=== PATIENT | male | born 1965 | race American Indian/Alaskan Native ===

== ENCOUNTER 2017-12-02 16:15 | Emergency (ER) | payer MEDICAID ==
[~2017-12-02] VITALS: Ht 152.4 cm; Wt 75.0 kg
[~2017-12-02 16:15] MED LIST: ALBU8HFA PO; DIVA-81 PO; TOPI50TA24 PO
[2017-12-02 16:59] VITALS: BP 139/68
== END 2017-12-02 19:14 | disposition home or self-care (01) ==
LOC: ER 16:16
DX: Z13.89 Encounter for screening for other disorder (principal); F12.10 Cannabis abuse, uncomplicated; F15.10 Other stimulant abuse, uncomplicated; Z88.2 Allergy status to sulfonamides
CPT/HCPCS: 71046; 99284

== ENCOUNTER 2018-06-05 12:16 | Emergency (ER) | payer MEDICAID ==
[~2018-06-05] VITALS: Ht 165.1 cm; Wt 60.0 kg
[2018-06-05 13:02] LABS: BASOPHILS % (AUTO) 0.4 % (0-1); EOSINOPHILS # (AUTO) 0.2 X10'3 (0-0.9); HEMATOCRIT 43.1 % (42.0-52.0); HEMOGLOBIN 14.4 g/dl (14.0-17.9); LYMPHOCYTES # (AUTO) 1.2 X10'3 (1.1-4.8); LYMPHOCYTES % (AUTO) 11.2 % (21-51); MEAN CORPUSCULAR HEMOGLOBIN 28.5 PG (27.0-31.0); MEAN CORPUSCULAR HGB CONC 33.5 % (33.0-36.5); MEAN CORPUSCULAR VOLUME 85.1 FL (78-98); MEAN PLATELET VOLUME 10.1 FL (7.4-10.4); MONOCYTES # (AUTO) 0.6 X10'3 (0-0.9); MONOCYTES % (AUTO) 5.5 % (2-12); NEUTROPHILS # (AUTO) 8.8 X10'3 (1.8-7.7); NEUTROPHILS % (AUTO) 80.9 % (42-75); PLATELET COUNT 205 X10'3 (140-440); RED BLOOD COUNT 5.06 X10'6 (4.70-6.10); RED CELL DISTRIBUTION WIDTH 14.3 % (11.5-14.5); WHITE BLOOD COUNT 10.9 X10'3 (4.5-11.0)
[2018-06-05 13:14] LABS: ALANINE AMINOTRANSFERASE 23 U/L (12-78); ALBUMIN 3.5 G/DL (3.4-5.0); ALKALINE PHOSPHATASE 89 IU/L (46-116); ANION GAP 9 (8-16); ASPARTATE AMINO TRANSFERASE 16 U/L (10-37); BILIRUBIN,TOTAL 0.3 MG/DL (0.1-1.0); BLOOD UREA NITROGEN 5 MG/DL (7-18); BUN/CREATININE RATIO 5.2 (5.4-32.0); CALCIUM 8.3 MG/DL (8.5-10.1); CHLORIDE 104 MMOL/L (99-107); CREATININE 0.96 MG/DL (0.60-1.10); GLUCOSE 105 MG/DL (70-104); LIPASE 694 U/L (73-393); SODIUM 141 MMOL/L (135-145); TOTAL CARBON DIOXIDE 27.6 MMOL/L (24-32); TOTAL PROTEIN 7.1 G/DL (6.4-8.2); eGFR 82 ML/MIN
[2018-06-05] MEDS ORDERED: potassium Cl 20 mEq SR tablet PO ONE (13:25)
[2018-06-05 13:38] LABS: CLARITY,URINE CLEAR (Clear); COLOR,URINE YELLOW (Yellow); GLUCOSE, URINE NEGATIVE (Neg); KETONES,URINE NEGATIVE (Neg); LEUKOCYTE ESTERASE ,URINE NEGATIVE (Neg); NITRITES, URINE NEGATIVE (Neg); OCCULT BLOOD,URINE NEGATIVE (Neg); PROTEIN,URINE NEGATIVE (Neg); UROBILINOGEN,URINE 0.2 E.U/dL (0.2-1.0)
[2018-06-05 13:45] LABS: UA COLLECTION TYPE NON-SPECIFIED
[2018-06-05 13:48] LABS: URINE AMPHETAMINE SCREEN POSITIVE (Neg); URINE BARBITUATE SCREEN NEGATIVE (Neg); URINE BENZODIAZEPINES SCREEN NEGATIVE (Neg); URINE CANNABINOID SCREEN POSITIVE (Neg); URINE COCAINE SCREEN NEGATIVE (Neg); URINE METHADONE SCREEN NEGATIVE (Neg); URINE OPIATE SCREEN NEGATIVE (Neg); URINE PHENCYCLIDINE SCREEN NEGATIVE (Neg)
[2018-06-05 14:14] VITALS: BP 131/95
== END 2018-06-05 14:15 | disposition home or self-care (01) ==
LOC: ER 12:17
DX: R39.11 Hesitancy of micturition (principal); F12.90 Cannabis use, unspecified, uncomplicated; F15.90 Other stimulant use, unspecified, uncomplicated; Z88.2 Allergy status to sulfonamides; Z79.899 Other long term (current) drug therapy
CPT/HCPCS: 36415; 80053; 80305; 81003; 83690; 85025; 99284

== ENCOUNTER 2018-06-30 12:31 | Emergency (ER) | payer MEDICAID ==
[~2018-06-30] VITALS: Ht 165.1 cm; Wt 77.3 kg
[2018-06-30 13:16] VITALS: BP 126/70
[2018-06-30 13:48] LABS: BASOPHILS # (AUTO) 0.1 X10'3 (0-0.2); BASOPHILS % (AUTO) 0.3 % (0-1); EOSINOPHILS # (AUTO) 0.2 X10'3 (0-0.9); HEMATOCRIT 44.6 % (42.0-52.0); HEMOGLOBIN 14.7 g/dl (14.0-17.9); LYMPHOCYTES % (AUTO) 4.6 % (21-51); MEAN CORPUSCULAR HEMOGLOBIN 28.4 PG (27.0-31.0); MEAN CORPUSCULAR HGB CONC 32.9 % (33.0-36.5); MEAN CORPUSCULAR VOLUME 86.3 FL (78-98); MEAN PLATELET VOLUME 9.9 FL (7.4-10.4); MONOCYTES # (AUTO) 1.4 X10'3 (0-0.9); MONOCYTES % (AUTO) 6.7 % (2-12); NEUTROPHILS # (AUTO) 18.5 X10'3 (1.8-7.7); NEUTROPHILS % (AUTO) 87.4 % (42-75); PLATELET COUNT 203 X10'3 (140-440); RED BLOOD COUNT 5.17 X10'6 (4.70-6.10); RED CELL DISTRIBUTION WIDTH 14.4 % (11.5-14.5); WHITE BLOOD COUNT 21.1 X10'3 (4.5-11.0)
[2018-06-30 14:06] LABS: ALANINE AMINOTRANSFERASE 35 U/L (12-78); ALBUMIN 3.2 G/DL (3.4-5.0); ALBUMIN/GLOBULIN RATIO 0.9 (1.1-1.5); ALKALINE PHOSPHATASE 100 IU/L (46-116); ANION GAP 9 (8-16); ASPARTATE AMINO TRANSFERASE 20 U/L (10-37); BILIRUBIN,TOTAL 0.2 MG/DL (0.1-1.0); BLOOD UREA NITROGEN 5 MG/DL (7-18); BUN/CREATININE RATIO 5.7 (5.4-32.0); CALCIUM 8.6 MG/DL (8.5-10.1); CHLORIDE 104 MMOL/L (99-107); CREATININE 0.87 MG/DL (0.60-1.10); GLUCOSE 81 MG/DL (70-104); LIPASE 379 U/L (73-393); POTASSIUM 3.4 MMOL/L (3.5-5.1); SODIUM 140 MMOL/L (135-145); TOTAL CARBON DIOXIDE 27.4 MMOL/L (24-32); TOTAL PROTEIN 6.8 G/DL (6.4-8.2); eGFR > 90 ML/MIN
[2018-06-30] MEDS ORDERED: levoFLOXACIN-Levaquin 500mg/D5 100 ML IV ONE (14:35)
[2018-06-30] MEDS ORDERED: metroNIDAZOLE-Flagyl 500mg/NS 100 ML IV STA (14:35)
[2018-06-30 14:39] LABS: CLARITY,URINE SLIGHTLY CLOUDY (Clear); COLOR,URINE YELLOW (Yellow); GLUCOSE, URINE NEGATIVE (Neg); KETONES,URINE NEGATIVE (Neg); LEUKOCYTE ESTERASE ,URINE NEGATIVE (Neg); NITRITES, URINE NEGATIVE (Neg); OCCULT BLOOD,URINE SMALL (Neg); PROTEIN,URINE NEGATIVE (Neg); UROBILINOGEN,URINE 0.2 E.U/dL (0.2-1.0)
[2018-06-30 14:47] LABS: UA COLLECTION TYPE CLN CATCH MIDSTREAM
[2018-06-30 14:50] LABS: CAL OXALATE CRYSTALS 4+ /HPF (NEGATIVE); MUCUS STRANDS MANY /LPF (Neg); SQUAMOUS EPITHELIAL CELL,UR FEW /LPF (FEW)
[2018-06-30 14:52] LABS: BACTERIA,URINE NONE SEEN /HPF (Neg); RBC,URINE 0-2 /HPF (0-2); WBC,URINE 0-4 /HPF (0-4)
[2018-06-30] MEDS ORDERED: FAMO-128 PO (19:02)
[2018-07-01] MEDS ORDERED: METR500T4 PO (12:52)
[2018-07-01] MEDS ORDERED: LEVO500T89 PO (12:52)
[2018-07-01] MEDS ORDERED: DIVA250T8 PO (12:52)
== END 2018-06-30 14:47 | disposition left against medical advice (07) ==
LOC: ER 12:32
DX: R10.30 Lower abdominal pain, unspecified (principal); D72.829 Elevated white blood cell count, unspecified; K52.9 Noninfective gastroenteritis and colitis, unspecified; F12.90 Cannabis use, unspecified, uncomplicated; F15.90 Other stimulant use, unspecified, uncomplicated; Z88.2 Allergy status to sulfonamides; Z79.899 Other long term (current) drug therapy; K44.9 Diaphragmatic hernia without obstruction or gangrene
CPT/HCPCS: 36415; 74176; 80053; 81001; 83690; 85025; 99285

== ENCOUNTER 2018-10-15 09:31 | Emergency (ER) | payer MEDICAID ==
[~2018-10-15] VITALS: Ht 162.6 cm; Wt 76.2 kg
[~2018-10-15 09:31] MED LIST changes: -DIVA-81 PO; +DIVA250T8 PO; +FAMO-128 PO; -TOPI50TA24 PO
[2018-10-15 09:40] VITALS: BP 116/85
[2018-10-15] MEDS ORDERED: ipratropium/albuterol 3ml nebule NEB ONE (10:40)
[2018-10-15] MEDS ORDERED: benzonatate 100mg capsule PO ONE (10:40)
[2018-10-15] MEDS ORDERED: BENZ-16 PO (12:02)
[2018-10-15] MEDS ORDERED: INHA1INH2 (12:02)
== END 2018-10-15 12:40 | disposition home or self-care (01) ==
LOC: ER 09:32
DX: J44.9 Chronic obstructive pulmonary disease, unspecified (principal); F12.90 Cannabis use, unspecified, uncomplicated; F15.90 Other stimulant use, unspecified, uncomplicated; Z88.2 Allergy status to sulfonamides
CPT/HCPCS: 71046; 87502; 87503; 94640; 94760; 99284

== ENCOUNTER 2019-01-24 09:50 | Emergency (ER) | payer MEDICAID ==
[~2019-01-24] VITALS: Ht 165.1 cm; Wt 76.5 kg
[~2019-01-24 09:50] MED LIST changes: +INHA1INH2
[2019-01-24 10:34] VITALS: BP 123/88
[2019-01-24] MEDS ORDERED: ibuprofen tablet 400 MG TABLET PO ONE (11:00)
== END 2019-01-24 11:10 | disposition home or self-care (01) ==
LOC: ER 09:51
DX: M25.521 Pain in right elbow (principal); J45.909 Unspecified asthma, uncomplicated; F12.90 Cannabis use, unspecified, uncomplicated; F15.90 Other stimulant use, unspecified, uncomplicated; Z88.2 Allergy status to sulfonamides; Z79.899 Other long term (current) drug therapy; V19.9XXA Pedal cyclist (driver) (passenger) injured in unspecified traffic accident, initial encounter; Y93.55 Activity, bike riding; Y92.89 Other specified places as the place of occurrence of the external cause; Y99.8 Other external cause status
CPT/HCPCS: 29125; 73080; 99283

== ENCOUNTER 2019-07-14 13:15 | Emergency (ER) | payer MEDICAID ==
[~2019-07-14] VITALS: Ht 165.1 cm; Wt 75.0 kg
[2019-07-14 13:18] VITALS: BP 140/86
[2019-07-14] MEDS ORDERED: ibuprofen 200mg tablet PO ONE (14:45)
[2019-07-14] MEDS ORDERED: ibuprofen tablet 400 MG TABLET PO ONE (14:45)
[2019-07-14] MEDS ORDERED: IBUP-1984 PO (14:46)
== END 2019-07-14 15:13 | disposition home or self-care (01) ==
LOC: ER 13:15
DX: S83.92XA Sprain of unspecified site of left knee, initial encounter (principal); J45.909 Unspecified asthma, uncomplicated; F41.9 Anxiety disorder, unspecified; F12.90 Cannabis use, unspecified, uncomplicated; F15.90 Other stimulant use, unspecified, uncomplicated; Z88.2 Allergy status to sulfonamides; Z79.899 Other long term (current) drug therapy; Z79.1 Long term (current) use of non-steroidal anti-inflammatories (NSAID); Z87.19 Personal history of other diseases of the digestive system; X58.XXXA Exposure to other specified factors, initial encounter; Y93.02 Activity, running; Y92.89 Other specified places as the place of occurrence of the external cause; Y99.8 Other external cause status
CPT/HCPCS: 99282

== ENCOUNTER 2021-01-05 09:55 | Emergency (ER) | payer MEDICAID ==
[~2021-01-05] VITALS: Ht 165.1 cm; Wt 82.2 kg
[2021-01-05 09:59] VITALS: BP 142/83
== END 2021-01-05 11:50 | disposition home or self-care (01) ==
LOC: ER 09:56
DX: M25.561 Pain in right knee (principal); F12.90 Cannabis use, unspecified, uncomplicated; F15.90 Other stimulant use, unspecified, uncomplicated; I10 Essential (primary) hypertension; J45.909 Unspecified asthma, uncomplicated; Z88.2 Allergy status to sulfonamides; Z79.899 Other long term (current) drug therapy; W50.2XXA Accidental twist by another person, initial encounter; Y93.89 Activity, other specified; Y92.89 Other specified places as the place of occurrence of the external cause; Y99.8 Other external cause status
CPT/HCPCS: 29505; 73564; 99284

== ENCOUNTER 2021-07-21 09:23 | Emergency (ER) | payer MEDICAID ==
[~2021-07-21] VITALS: Ht 165.1 cm; Wt 75.0 kg
[2021-07-21 11:19] LABS: BASOPHILS # (AUTO) 0.1 X10'3 (0-0.2); BASOPHILS % (AUTO) 0.9 % (0-1); EOSINOPHILS # (AUTO) 0.2 X10'3 (0-0.9); EOSINOPHILS % (AUTO) 2.2 % (0-6); HEMATOCRIT 42.3 % (42.0-52.0); HEMOGLOBIN 14.1 g/dl (14.0-17.9); LYMPHOCYTES # (AUTO) 1.7 X10'3 (1.1-4.8); LYMPHOCYTES % (AUTO) 16.9 % (21-51); MEAN CORPUSCULAR HEMOGLOBIN 28.7 PG (27.0-31.0); MEAN CORPUSCULAR HGB CONC 33.3 g/dL (33.0-36.5); MEAN CORPUSCULAR VOLUME 86.3 FL (78-98); MONOCYTES # (AUTO) 0.8 X10'3 (0-0.9); MONOCYTES % (AUTO) 7.7 % (2-12); NEUTROPHILS # (AUTO) 7.1 X10'3 (1.8-7.7); NEUTROPHILS % (AUTO) 72.3 % (42-75); PLATELET COUNT 178 X10'3 (140-440); RED CELL DISTRIBUTION WIDTH 14.2 % (11.5-14.5); WHITE BLOOD COUNT 9.9 X10'3 (4.5-11.0)
[2021-07-21 11:41] LABS: ALANINE AMINOTRANSFERASE 19 U/L (12-78); ALBUMIN 3.2 G/DL (3.4-5.0); ALBUMIN/GLOBULIN RATIO 0.8 (1.1-1.5); ALKALINE PHOSPHATASE 83 IU/L (46-116); ANION GAP 6 (8-16); ASPARTATE AMINO TRANSFERASE 21 U/L (10-37); BILIRUBIN,TOTAL 0.4 MG/DL (0.1-1.0); BLOOD UREA NITROGEN 12 MG/DL (7-18); CALCIUM 8.3 MG/DL (8.5-10.1); CHLORIDE 106 MMOL/L (99-107); GLUCOSE 100 MG/DL (70-104); POTASSIUM 3.6 MMOL/L (3.5-5.1); SODIUM 139 MMOL/L (135-145); TOTAL CARBON DIOXIDE 27.1 MMOL/L (24-32); TOTAL PROTEIN 7.1 G/DL (6.4-8.2); eGFR > 90 ML/MIN
[2021-07-21] MEDS ORDERED: FURO-150 PO (12:18)
[2021-07-21] MEDS ORDERED: furosemide 20MG tablet PO ONE (12:20)
[2021-07-21 12:31] VITALS: BP 134/92
== END 2021-07-21 12:33 | disposition home or self-care (01) ==
LOC: ER 09:24
DX: R06.02 Shortness of breath (principal); I10 Essential (primary) hypertension; R06.00 Dyspnea, unspecified; J45.909 Unspecified asthma, uncomplicated; F41.9 Anxiety disorder, unspecified; F12.90 Cannabis use, unspecified, uncomplicated; F15.90 Other stimulant use, unspecified, uncomplicated; Z88.2 Allergy status to sulfonamides; Z79.899 Other long term (current) drug therapy
CPT/HCPCS: 36415; 71045; 80053; 83880; 85025; 93005; 99285

== ENCOUNTER 2021-08-23 11:01 | Outpatient (CLI) | payer MEDICAID | END 2021-08-23 23:59 | disposition home or self-care (01) | LOC: CARD DIAG 11:01 | PROVIDERS: ATTEND Nurse Practitioner Family | DX: I34.0 Nonrheumatic mitral (valve) insufficiency (principal); I50.9 Heart failure, unspecified | CPT/HCPCS: 93306 ==

== ENCOUNTER 2021-09-04 11:29 | Emergency (ER) | payer MEDICAID ==
[~2021-09-04] VITALS: Ht 165.1 cm; Wt 82.7 kg
[2021-09-04 11:38] VITALS: BP 130/91
[2021-09-04] MEDS ORDERED: aspirin 81mg tab.chew PO ONE (11:40)
[2021-09-04 12:07] LABS: BASOPHILS # (AUTO) 0.1 X10'3 (0-0.2); EOSINOPHILS # (AUTO) 0.2 X10'3 (0-0.9); EOSINOPHILS % (AUTO) 2.5 % (0-6); HEMATOCRIT 41.6 % (42.0-52.0); HEMOGLOBIN 13.9 g/dl (14.0-17.9); LYMPHOCYTES # (AUTO) 1.4 X10'3 (1.1-4.8); LYMPHOCYTES % (AUTO) 16.5 % (21-51); MEAN CORPUSCULAR HEMOGLOBIN 28.1 PG (27.0-31.0); MEAN CORPUSCULAR HGB CONC 33.4 g/dL (33.0-36.5); MEAN CORPUSCULAR VOLUME 84.2 FL (78-98); MEAN PLATELET VOLUME 9.9 FL (7.4-10.4); MONOCYTES # (AUTO) 0.6 X10'3 (0-0.9); MONOCYTES % (AUTO) 6.9 % (2-12); NEUTROPHILS # (AUTO) 6.1 X10'3 (1.8-7.7); NEUTROPHILS % (AUTO) 73.1 % (42-75); PLATELET COUNT 188 X10'3 (140-440); RED BLOOD COUNT 4.94 X10'6 (4.70-6.10); RED CELL DISTRIBUTION WIDTH 14.5 % (11.5-14.5); WHITE BLOOD COUNT 8.4 X10'3 (4.5-11.0)
[2021-09-04 12:27] LABS: ALANINE AMINOTRANSFERASE 33 U/L (12-78); ALBUMIN 3.1 G/DL (3.4-5.0); ALBUMIN/GLOBULIN RATIO 0.9 (1.1-1.5); ALKALINE PHOSPHATASE 95 IU/L (46-116); ANION GAP 8 (8-16); ASPARTATE AMINO TRANSFERASE 20 U/L (10-37); BILIRUBIN,TOTAL 0.6 MG/DL (0.1-1.0); BLOOD UREA NITROGEN 8 MG/DL (7-18); BUN/CREATININE RATIO 7.8 (5.4-32.0); CALCIUM 8.2 MG/DL (8.5-10.1); CHLORIDE 108 MMOL/L (99-107); CREATININE 1.03 MG/DL (0.60-1.10); GLUCOSE 109 MG/DL (70-104); SODIUM 139 MMOL/L (135-145); TOTAL CARBON DIOXIDE 23.5 MMOL/L (24-32); TOTAL PROTEIN 6.6 G/DL (6.4-8.2); eGFR 75 ML/MIN
[2021-09-04] MEDS ORDERED: furosemide 20MG tablet PO ONE (12:50)
== END 2021-09-04 13:43 | disposition home or self-care (01) ==
LOC: ER 11:30
DX: I50.9 Heart failure, unspecified (principal); Z20.822 Contact with and (suspected) exposure to COVID-19; R05.9 Cough, unspecified; R06.02 Shortness of breath; R07.89 Other chest pain; R42 Dizziness and giddiness; I10 Essential (primary) hypertension; J45.909 Unspecified asthma, uncomplicated; F41.9 Anxiety disorder, unspecified; F17.200 Nicotine dependence, unspecified, uncomplicated; F12.90 Cannabis use, unspecified, uncomplicated; F15.90 Other stimulant use, unspecified, uncomplicated; Z88.2 Allergy status to sulfonamides; Z79.899 Other long term (current) drug therapy
CPT/HCPCS: 36415; 71045; 80053; 83880; 84484; 85025; 87635; 93005; 99285; C9803

== ENCOUNTER 2021-10-11 20:45 | Inpatient (IN) | payer MEDICAID ==
[~2021-10-11] VITALS: Ht 165.1 cm; Wt 77.2 kg
[2021-10-11 21:27] LABS: BASOPHILS # (AUTO) 0.1 X10'3 (0-0.2); BASOPHILS % (AUTO) 1.2 % (0-1); EOSINOPHILS # (AUTO) 0.1 X10'3 (0-0.9); EOSINOPHILS % (AUTO) 0.8 % (0-6); HEMATOCRIT 42.4 % (42.0-52.0); HEMOGLOBIN 13.6 g/dl (14.0-17.9); LYMPHOCYTES # (AUTO) 1.9 X10'3 (1.1-4.8); LYMPHOCYTES % (AUTO) 16.6 % (21-51); MEAN CORPUSCULAR HEMOGLOBIN 27.2 PG (27.0-31.0); MEAN CORPUSCULAR HGB CONC 32.2 g/dL (33.0-36.5); MEAN CORPUSCULAR VOLUME 84.4 FL (78-98); MEAN PLATELET VOLUME 10.4 FL (7.4-10.4); MONOCYTES # (AUTO) 0.9 X10'3 (0-0.9); MONOCYTES % (AUTO) 7.9 % (2-12); NEUTROPHILS # (AUTO) 8.6 X10'3 (1.8-7.7); NEUTROPHILS % (AUTO) 73.5 % (42-75); PLATELET COUNT 214 X10'3 (140-440); RED BLOOD COUNT 5.02 X10'6 (4.70-6.10); RED CELL DISTRIBUTION WIDTH 15.6 % (11.5-14.5); WHITE BLOOD COUNT 11.7 X10'3 (4.5-11.0)
[2021-10-11 21:40] LABS: ALANINE AMINOTRANSFERASE 41 U/L (12-78); ALBUMIN 3.3 G/DL (3.4-5.0); ALBUMIN/GLOBULIN RATIO 0.9 (1.1-1.5); ALKALINE PHOSPHATASE 97 IU/L (46-116); ANION GAP 13 (8-16); ASPARTATE AMINO TRANSFERASE 31 U/L (10-37); BILIRUBIN,TOTAL 1.5 MG/DL (0.1-1.0); BLOOD UREA NITROGEN 20 MG/DL (7-18); BUN/CREATININE RATIO 14.1 (5.4-32.0); CALCIUM 8.6 MG/DL (8.5-10.1); CHLORIDE 104 MMOL/L (99-107); CREATININE 1.42 MG/DL (0.60-1.10); GLUCOSE 115 MG/DL (70-104); POTASSIUM 4.1 MMOL/L (3.5-5.1); SODIUM 140 MMOL/L (135-145); TOTAL CARBON DIOXIDE 23.1 MMOL/L (24-32); TOTAL PROTEIN 6.8 G/DL (6.4-8.2); eGFR 52 ML/MIN
[2021-10-12 02:09] LABS: ETHANOL < 0.010 GM/DL (0.0-0.010)
[2021-10-12] MEDS ORDERED: furosemide 10 MG/1 ML 10ml inj IV ONE (02:15)
[2021-10-12] MEDS ORDERED: LORazepam 2 mg/ml vial IV ONE (02:15)
[2021-10-12] MEDS ORDERED: PERFLUTREN PROTEIN-A MICROSPHR (Optison) 0.22 MG/ML 3ML VIAL IV PRN (02:30)
[2021-10-12] MEDS ORDERED: ondansetron/PF 4mg/2ml inj IV PRN (02:30)
[2021-10-12] MEDS ORDERED: magnesium Cl slow-release 64mg tablet PO PRN (02:30)
[2021-10-12] MEDS ORDERED: morphine 2 MG/ML inj. syringe IV PRN (02:30)
[2021-10-12] MEDS ORDERED: magnesium 2GM in 50ml NS 50 ML IV PRN (02:30)
[2021-10-12] MEDS ORDERED: HYDROcodone/acetaminophen 5mg/325mg tablet PO PRN (02:30)
[2021-10-12] MEDS ORDERED: magnesium 4gm in 100ml NS 100 ML IV PRN (02:30)
[2021-10-12] MEDS ORDERED: potassium Cl 20 mEq SR tablet PO PRN ×2 (02:30)
[2021-10-12] MEDS ORDERED: potassium CL 10mEq/100ml bag 100 ML IV PRN (02:30)
[2021-10-12] MEDS ORDERED: acetaminophen 325mg tablet PO PRN ×2 (02:30)
[2021-10-12] MEDS: metoprolol tartrate 1mg/ml inj IV SCH ×5 (02:36→03:32)
[2021-10-12] MEDS ORDERED: FURO20TA4 PO (02:43)
[2021-10-12] MEDS ORDERED: CARV6.2553 PO (02:43)
[2021-10-12] MEDS ORDERED: PALI117D IM (02:43)
[2021-10-12] MEDS ORDERED: APIX5TAB3 PO (02:43)
[2021-10-12] MEDS ORDERED: ALBU8HFA IH (02:43)
[2021-10-12] MEDS ORDERED: MOME13HF4 INH (02:43)
[2021-10-12] MEDS ORDERED: POTA8TAB58 PO (02:43)
[2021-10-12] MEDS ORDERED: CHOL20003 PO (02:43)
[2021-10-12] MEDS ORDERED: albuterol 2.5 MG/3 ML nebule NEB PRN (03:20)
[2021-10-12 06:11] LABS: URINE AMPHETAMINE SCREEN POSITIVE (Neg); URINE BARBITUATE SCREEN NEGATIVE (Neg); URINE BENZODIAZEPINES SCREEN NEGATIVE (Neg); URINE CANNABINOID SCREEN POSITIVE (Neg); URINE COCAINE SCREEN NEGATIVE (Neg); URINE METHADONE SCREEN NEGATIVE (Neg); URINE OPIATE SCREEN NEGATIVE (Neg); URINE PHENCYCLIDINE SCREEN NEGATIVE (Neg)
[2021-10-12] MEDS ORDERED: carvedilol 6.25mg tablet PO SCH (08:00)
[2021-10-12] MEDS: furosemide 40mg/4ml inj IV SCH ×2 (08:26→20:19)
[2021-10-12] MEDS: carvedilol 6.25mg tablet PO SCH ×2 (08:26→19:51)
[2021-10-12] MEDS: heparin, porcine 5000 units/ml vial SQ SCH ×2 (08:26→19:52)
[2021-10-12] MEDS: potassium chloride 8mEq ER tablet PO SCH (08:26)
[2021-10-12] MEDS: K and/or MAG REPLACEMENT MC SCH ×2 (08:27→20:00)
[2021-10-12] MEDS: budesonide 0.5mg/2ml UD nebule IH SCH ×2 (08:44→19:48)
[2021-10-12 11:19] VITALS: BP 121/88
[2021-10-12 15:00] VITALS: BP 116/76
--- NOTE | 2021-10-12 18:29 | NUR ---
Report received from Traveler RN, had the opportunity to review patient's chart, ask questions and assume care.
[2021-10-12 19:00] VITALS: BP 125/96
[2021-10-12 22:00] VITALS: BP 123/84
[2021-10-13 02:00] VITALS: BP 120/83
[2021-10-13 06:00] VITALS: BP 119/70
--- NOTE | 2021-10-13 06:23 | NUR ---
Problems reprioritized. Patient report given, questions answered & plan of care reviewed with Antoine Smith RN.
[2021-10-13 06:57] LABS: BASOPHILS # (AUTO) 0.2 X10'3 (0-0.2); BASOPHILS % (AUTO) 1.3 % (0-1); EOSINOPHILS # (AUTO) 0.1 X10'3 (0-0.9); LYMPHOCYTES # (AUTO) 2.3 X10'3 (1.1-4.8); LYMPHOCYTES % (AUTO) 19.7 % (21-51); MEAN CORPUSCULAR HGB CONC 32.5 g/dL (33.0-36.5); MEAN PLATELET VOLUME 10.4 FL (7.4-10.4); MONOCYTES % (AUTO) 8.3 % (2-12); NEUTROPHILS # (AUTO) 8.2 X10'3 (1.8-7.7); NEUTROPHILS % (AUTO) 69.7 % (42-75); PLATELET COUNT 191 X10'3 (140-440); RED BLOOD COUNT 4.82 X10'6 (4.70-6.10); RED CELL DISTRIBUTION WIDTH 15.3 % (11.5-14.5); WHITE BLOOD COUNT 11.8 X10'3 (4.5-11.0)
[2021-10-13 07:15] LABS: ALANINE AMINOTRANSFERASE 132 U/L (12-78); ALBUMIN/GLOBULIN RATIO 1.1 (1.1-1.5); ALKALINE PHOSPHATASE 93 IU/L (46-116); ANION GAP 15 (8-16); ASPARTATE AMINO TRANSFERASE 107 U/L (10-37); BILIRUBIN,TOTAL 1.9 MG/DL (0.1-1.0); BLOOD UREA NITROGEN 28 MG/DL (7-18); BUN/CREATININE RATIO 21.4 (5.4-32.0); CALCIUM 8.1 MG/DL (8.5-10.1); CHLORIDE 105 MMOL/L (99-107); CHOL/HDL RATIO 3.3 (0.00-4.99); CHOLESTEROL 110 MG/DL (0-200); CREATININE 1.31 MG/DL (0.60-1.10); GLUCOSE 98 MG/DL (70-104); HDL CHOLESTEROL 33 MG/DL (35-60); LDL CHOLESTEROL 72 MG/DL (50-100); POTASSIUM 3.6 MMOL/L (3.5-5.1); SODIUM 142 MMOL/L (135-145); TOTAL CARBON DIOXIDE 21.9 MMOL/L (24-32); TOTAL PROTEIN 5.8 G/DL (6.4-8.2); TRIGLYCERIDES 77 MG/DL (20-135); eGFR 57 ML/MIN
[2021-10-13] MEDS: potassium chloride 8mEq ER tablet PO SCH (07:42)
[2021-10-13] MEDS: furosemide 40mg/4ml inj IV SCH ×2 (07:42→20:13)
[2021-10-13] MEDS: carvedilol 6.25mg tablet PO SCH ×2 (07:42→20:14)
[2021-10-13] MEDS: heparin, porcine 5000 units/ml vial SQ SCH ×2 (07:43→20:13)
[2021-10-13] MEDS: K and/or MAG REPLACEMENT MC SCH ×2 (08:00→20:00)
[2021-10-13] MEDS: budesonide 0.5mg/2ml UD nebule IH SCH ×2 (09:17→19:19)
[2021-10-13 11:00] VITALS: BP 114/90
[2021-10-13] MEDS ORDERED: FURO20TA4 PO (12:41)
[2021-10-13 15:00] VITALS: BP 123/84
[2021-10-13 18:00] VITALS: BP 133/90
[2021-10-13 22:00] VITALS: BP 126/88
[2021-10-14 02:00] VITALS: BP 99/63
[2021-10-14 06:00] VITALS: BP 122/74
[2021-10-14 07:14] LABS: BASOPHILS # (AUTO) 0.1 X10'3 (0-0.2); BASOPHILS % (AUTO) 1.2 % (0-1); EOSINOPHILS # (AUTO) 0.1 X10'3 (0-0.9); EOSINOPHILS % (AUTO) 1.3 % (0-6); HEMATOCRIT 39.5 % (42.0-52.0); HEMOGLOBIN 12.9 g/dl (14.0-17.9); LYMPHOCYTES # (AUTO) 1.9 X10'3 (1.1-4.8); LYMPHOCYTES % (AUTO) 19.6 % (21-51); MEAN CORPUSCULAR HEMOGLOBIN 27.5 PG (27.0-31.0); MEAN CORPUSCULAR HGB CONC 32.6 g/dL (33.0-36.5); MEAN CORPUSCULAR VOLUME 84.1 FL (78-98); MEAN PLATELET VOLUME 10.7 FL (7.4-10.4); MONOCYTES # (AUTO) 1.1 X10'3 (0-0.9); MONOCYTES % (AUTO) 10.7 % (2-12); NEUTROPHILS # (AUTO) 6.7 X10'3 (1.8-7.7); NEUTROPHILS % (AUTO) 67.2 % (42-75); PLATELET COUNT 155 X10'3 (140-440); RED CELL DISTRIBUTION WIDTH 15.7 % (11.5-14.5); WHITE BLOOD COUNT 9.9 X10'3 (4.5-11.0)
[2021-10-14] MEDS: budesonide 0.5mg/2ml UD nebule IH SCH (07:38)
[2021-10-14 07:48] LABS: ALANINE AMINOTRANSFERASE 121 U/L (12-78); ALBUMIN 2.7 G/DL (3.4-5.0); ALKALINE PHOSPHATASE 89 IU/L (46-116); ANION GAP 15 (8-16); ASPARTATE AMINO TRANSFERASE 70 U/L (10-37); BILIRUBIN,TOTAL 1.7 MG/DL (0.1-1.0); BLOOD UREA NITROGEN 27 MG/DL (7-18); BUN/CREATININE RATIO 21.3 (5.4-32.0); CALCIUM 7.3 MG/DL (8.5-10.1); CHLORIDE 106 MMOL/L (99-107); CREATININE 1.27 MG/DL (0.60-1.10); GLUCOSE 78 MG/DL (70-104); POTASSIUM 3.2 MMOL/L (3.5-5.1); SODIUM 145 MMOL/L (135-145); TOTAL CARBON DIOXIDE 23.8 MMOL/L (24-32); TOTAL PROTEIN 5.3 G/DL (6.4-8.2); eGFR 59 ML/MIN
[2021-10-14] MEDS: K and/or MAG REPLACEMENT MC SCH (08:00)
[2021-10-14] MEDS: furosemide 40mg/4ml inj IV SCH (08:27)
[2021-10-14] MEDS: heparin, porcine 5000 units/ml vial SQ SCH (08:28)
[2021-10-14] MEDS: carvedilol 6.25mg tablet PO SCH (08:29)
[2021-10-14] MEDS: potassium chloride 8mEq ER tablet PO SCH (08:29)
[2021-10-14 11:00] VITALS: BP 111/81
[2021-10-14 15:00] VITALS: BP 109/89
[2021-10-28] MEDS ORDERED: PALIPERIDONE PALMITATE 117 MG/0.75 ML IM SCH (08:00)
== END 2021-10-14 16:00 | disposition home or self-care (01) | DRG 194 ==
LOC: ER 20:46 → ED HOLD 10-12 02:33 → PCU 3S 10-12 11:07
PROVIDERS: ADMIT Internal Medicine; ATTEND Internal Medicine
DX: I13.0 Hypertensive heart and chronic kidney disease with heart failure and stage 1 through stage 4 chronic kidney disease, or unspecified chronic kidney disease (principal); N17.9 Acute kidney failure, unspecified; I42.9 Cardiomyopathy, unspecified; Z79.01 Long term (current) use of anticoagulants; F12.90 Cannabis use, unspecified, uncomplicated; I50.23 Acute on chronic systolic (congestive) heart failure; F41.9 Anxiety disorder, unspecified; J45.909 Unspecified asthma, uncomplicated; N18.30 Chronic kidney disease, stage 3 unspecified; Z20.822 Contact with and (suspected) exposure to COVID-19; R00.0 Tachycardia, unspecified; Z88.2 Allergy status to sulfonamides; Z87.891 Personal history of nicotine dependence; Z71.51 Drug abuse counseling and surveillance of drug abuser
CPT/HCPCS: 36415; 71045; 80053; 80061; 80305; 80320; 83880; 84484; 85025; 87635; 93005; 93306; 94640; 94760; 97116; 97161; 97530; 99285; G0378; J1644; J1940; J2060; J3490

== ENCOUNTER 2021-11-04 15:10 | Inpatient (IN) | payer MEDICAID ==
[~2021-11-04] VITALS: Ht 165.1 cm; Wt 73.5 kg
[~2021-11-04 15:10] MED LIST changes: +ALBU8HFA IH; -ALBU8HFA PO; +APIX5TAB3 PO; +CARV6.2553 PO; +CHOL20003 PO; -DIVA250T8 PO; -FAMO-128 PO; +FURO20TA4 PO; -INHA1INH2; +MOME13HF4 INH; +PALI117D IM; +POTA8TAB58 PO; +adenosine 3mg/ml 2ml vial IV ONE
[2021-11-04 16:07] LABS: BASOPHILS # (AUTO) 0.1 X10'3 (0-0.2); BASOPHILS % (AUTO) 0.9 % (0-1); EOSINOPHILS % (AUTO) 0.4 % (0-6); HEMATOCRIT 41.2 % (42.0-52.0); HEMOGLOBIN 13.3 g/dl (14.0-17.9); LYMPHOCYTES # (AUTO) 0.6 X10'3 (1.1-4.8); LYMPHOCYTES % (AUTO) 5.7 % (21-51); MEAN CORPUSCULAR HEMOGLOBIN 26.9 PG (27.0-31.0); MEAN CORPUSCULAR HGB CONC 32.3 g/dL (33.0-36.5); MEAN CORPUSCULAR VOLUME 83.3 FL (78-98); MEAN PLATELET VOLUME 9.9 FL (7.4-10.4); MONOCYTES # (AUTO) 0.6 X10'3 (0-0.9); MONOCYTES % (AUTO) 5.9 % (2-12); NEUTROPHILS # (AUTO) 9.4 X10'3 (1.8-7.7); NEUTROPHILS % (AUTO) 87.1 % (42-75); PLATELET COUNT 159 X10'3 (140-440); RED BLOOD COUNT 4.95 X10'6 (4.70-6.10); WHITE BLOOD COUNT 10.8 X10'3 (4.5-11.0)
[2021-11-04 16:18] LABS: ALANINE AMINOTRANSFERASE 25 U/L (12-78); ALBUMIN 3.3 G/DL (3.4-5.0); ALBUMIN/GLOBULIN RATIO 0.8 (1.1-1.5); ALKALINE PHOSPHATASE 97 IU/L (46-116); ANION GAP 12 (8-16); ASPARTATE AMINO TRANSFERASE 23 U/L (10-37); BILIRUBIN,TOTAL 1.3 MG/DL (0.1-1.0); BLOOD UREA NITROGEN 8 MG/DL (7-18); BUN/CREATININE RATIO 6.5 (5.4-32.0); CALCIUM 8.7 MG/DL (8.5-10.1); CHLORIDE 100 MMOL/L (99-107); CREATININE 1.23 MG/DL (0.60-1.10); GLUCOSE 125 MG/DL (70-104); POTASSIUM 3.5 MMOL/L (3.5-5.1); SODIUM 139 MMOL/L (135-145); TOTAL CARBON DIOXIDE 27.2 MMOL/L (24-32); TOTAL PROTEIN 7.4 G/DL (6.4-8.2); eGFR 61 ML/MIN
[2021-11-04] MEDS ORDERED: furosemide 10 MG/1 ML 10ml inj IV ONE (17:00)
[2021-11-04] MEDS ORDERED: diltiazem 5mg/ml 5ml inj. IV ONE (17:20)
[2021-11-04] MEDS ORDERED: aspirin 81mg tab.chew PO ONE (18:10)
[2021-11-04] MEDS ORDERED: adenosine 3mg/ml 2ml vial IV ONE (18:40)
--- NOTE | 2021-11-04 18:50 | NUR ---
1100 ML URINE OUTPUT AT 1850
--- NOTE | 2021-11-04 19:19 | NUR ---
Cardioversion attempted. First attempt with 6 mg was ineffective. Second attempt with 12 mg converted patient to sinus tachycardia. Heart rate remains 130 bpm Other vital signs stable.
[2021-11-04] MEDS ORDERED: LORazepam 2 mg/ml vial IV ONE (19:20)
[2021-11-04] MEDS ORDERED: magnesium hydroxide 30ml (MOM) UD suspension PO PRN (19:50)
[2021-11-04] MEDS ORDERED: diphenhydrAMINE 50 mg/ml inj IV PRN (19:50)
[2021-11-04] MEDS ORDERED: ondansetron 4mg rapidly disintigrating tab PO PRN (19:50)
[2021-11-04] MEDS ORDERED: diphenhydrAMINE 25mg capsule PO PRN (19:50)
[2021-11-04] MEDS ORDERED: morphine 2 MG/ML inj. syringe IV PRN ×2 (19:50)
[2021-11-04] MEDS ORDERED: ondansetron/PF 4mg/2ml inj IV PRN (19:50)
[2021-11-04] MEDS ORDERED: HYDROcodone/acetaminophen 5mg/325mg tablet PO PRN (19:50)
[2021-11-04] MEDS ORDERED: mag hydrox/Alum hydrox/simeth 30ml oral suspension PO PRN (19:50)
[2021-11-04] MEDS ORDERED: bisacodyl 10mg suppository rectal RC PRN (19:50)
[2021-11-04] MEDS ORDERED: acetaminophen 650mg rectal suppository RC PRN (19:50)
[2021-11-04] MEDS ORDERED: acetaminophen 325mg tablet PO PRN ×2 (19:50)
[2021-11-04] MEDS ORDERED: diltiazem-NS 100mg/100ml 100 ML IV SCH (19:55)
[2021-11-04] MEDS ORDERED: digoxin 250mcg/ml 2ml ampule IV ONE (19:55)
[2021-11-04 20:10] LABS: APTT 30 SECONDS (22-32)
[2021-11-04 20:13] LABS: CLARITY,URINE CLEAR (Clear); GLUCOSE, URINE NEGATIVE (Neg); KETONES,URINE NEGATIVE (Neg); LEUKOCYTE ESTERASE ,URINE NEGATIVE (Neg); NITRITES, URINE NEGATIVE (Neg); OCCULT BLOOD,URINE TRACE-INTACT (Neg); PROTEIN,URINE NEGATIVE (Neg); UROBILINOGEN,URINE 0.2 E.U/dL (0.2-1.0)
[2021-11-04 20:14] LABS: COLOR,URINE STRAW (Yellow); UA COLLECTION TYPE STRAIGHT CATH
[2021-11-04] MEDS ORDERED: FURO-150 PO (20:18)
[2021-11-04 20:23] LABS: BACTERIA,URINE NONE SEEN /HPF (Neg); MUCUS STRANDS NONE SEEN /LPF (Neg); RBC,URINE 0-2 /HPF (0-2); SQUAMOUS EPITHELIAL CELL,UR FEW /LPF (FEW); WBC,URINE NONE SEEN /HPF (0-4)
[2021-11-04 20:24] LABS: URINE AMPHETAMINE SCREEN POSITIVE (Neg); URINE BARBITUATE SCREEN NEGATIVE (Neg); URINE BENZODIAZEPINES SCREEN NEGATIVE (Neg); URINE CANNABINOID SCREEN POSITIVE (Neg); URINE COCAINE SCREEN NEGATIVE (Neg); URINE METHADONE SCREEN NEGATIVE (Neg); URINE OPIATE SCREEN NEGATIVE (Neg); URINE PHENCYCLIDINE SCREEN NEGATIVE (Neg)
[2021-11-04 20:26] LABS: CREATINE KINASE 97 U/L (39-308)
[2021-11-04] MEDS ORDERED: PALIPERIDONE PALMITATE IM SCH (20:30)
[2021-11-04] MEDS: docusate sod 100mg capsule PO SCH (20:33)
[2021-11-04] MEDS: DOBUTamine-DoBUTrex 500mg/D5W 250 ML IV SCH ×2 (20:35→23:06)
[2021-11-04] MEDS ORDERED: temazepam 15mg capsule PO PRN (21:00)
[2021-11-04 21:21] VITALS: BP 108/85
[2021-11-04 21:27] LABS: ABG BASE EXCESS 3.9 mmol/L (-2.0-2.0); ABG HCO3 25.5 mmol/L (22.0-26.0); ABG OXYGEN SATURATION 95.4 % (94-97); ABG PCO2 (T) 29.5 mmHg (35.0-48.0); ABG PO2 (T) 72.3 mmHg (75.0-100.0); ALLEN'S TEST POSITIVE; FCOHb 0.4 % (0.0-3.9); FLOW 2 L/min; FMetHb 0.4 % (0.0-1.5); FO2Hb 94.6 % (94-97); TOTAL HEMOGLOBIN 13.4 G/dl (14.0-18.0)
[2021-11-04 22:02] LABS: MAGNESIUM 1.7 MG/DL (1.5-2.4); PHOSPHORUS 3.7 MG/DL (2.3-4.5)
[2021-11-04 22:15] VITALS: BP 125/84
[2021-11-04] MEDS ORDERED: normal saline 1000ml 1,000 ML IV SCH (23:00)
[2021-11-04 23:15] VITALS: BP 113/76
[2021-11-04 23:45] VITALS: BP 115/76
[2021-11-05] VITALS (9 sets, daily range): BP systolic 84–133; BP diastolic 47–89
[2021-11-05] MEDS: LORazepam 2 mg/ml vial IV SCH ×4 (00:09→23:48)
--- NOTE | 2021-11-05 00:22 | NUR ---
PT ADMITTED TO UNIT VIA STRETCHER. RESP EVEN AND NONLABORED W/ EQUAL CHEST EXPANSION BILATERALLY ON 2LPM VIA NASAL CANNULA. HEART SOUNDS NORMAL TO AUSCULTATION, S1/S2 NOTED. PT TACHY. REMOTE TELEMETRY AND CONT'D BP MONITORING CONTINUED. CAPILLARY REFILL LESS THAN 3 SECONDS. PT C/O NO CHEST PAIN SINCE ADMISSION. DOBUTAMINE AND CARDIZEM DRIPS IN PLACE, PATENT AND INFUSING. ALL ABD QUADRANTS NORMOACTIVE X4. ABD SOFT, NONTENDER TO TOUCH. SKIN INTACT WITH RASH NOTED TO NKECHI ANTERIOR ANKLES PT STATES HAS BEEN THERE FOR ABOUT A WEEK BUT UNSURE HOW IT BEGAN OR WHY. REDNESS TO GROIN NOTED WELL VITILIGO TO BODY. PT WAS ORDERED INVEGA BUT IT WAS D/C'D DUE TO MONTHLY DOSE BEING TAKEN PER PT 11/03/2021. NO S/S OF ACUTE PAIN/DISTRESS NOTED. WILL CONTINUE TO OBSERVE.
[2021-11-05 06:59] LABS: BASOPHILS # (AUTO) 0.1 X10'3 (0-0.2); BASOPHILS % (AUTO) 0.8 % (0-1); EOSINOPHILS % (AUTO) 0.1 % (0-6); HEMATOCRIT 36.3 % (42.0-52.0); HEMOGLOBIN 11.6 g/dl (14.0-17.9); LYMPHOCYTES # (AUTO) 0.5 X10'3 (1.1-4.8); LYMPHOCYTES % (AUTO) 7.2 % (21-51); MEAN CORPUSCULAR VOLUME 81.4 FL (78-98); MEAN PLATELET VOLUME 10.5 FL (7.4-10.4); MONOCYTES # (AUTO) 0.5 X10'3 (0-0.9); MONOCYTES % (AUTO) 7.7 % (2-12); NEUTROPHILS # (AUTO) 5.8 X10'3 (1.8-7.7); NEUTROPHILS % (AUTO) 84.2 % (42-75); PLATELET COUNT 126 X10'3 (140-440); RED BLOOD COUNT 4.46 X10'6 (4.70-6.10); RED CELL DISTRIBUTION WIDTH 16.2 % (11.5-14.5); WHITE BLOOD COUNT 6.8 X10'3 (4.5-11.0)
[2021-11-05 07:16] LABS: ALANINE AMINOTRANSFERASE 18 U/L (12-78); ALBUMIN 2.6 G/DL (3.4-5.0); ALBUMIN/GLOBULIN RATIO 0.8 (1.1-1.5); ALKALINE PHOSPHATASE 67 IU/L (46-116); ANION GAP 13 (8-16); ASPARTATE AMINO TRANSFERASE 21 U/L (10-37); BILIRUBIN,TOTAL 1.5 MG/DL (0.1-1.0); BLOOD UREA NITROGEN 9 MG/DL (7-18); BUN/CREATININE RATIO 9.7 (5.4-32.0); CALCIUM 7.8 MG/DL (8.5-10.1); CHLORIDE 104 MMOL/L (99-107); CREATININE 0.93 MG/DL (0.60-1.10); GLUCOSE 92 MG/DL (70-104); SODIUM 142 MMOL/L (135-145); TOTAL CARBON DIOXIDE 25.2 MMOL/L (24-32); TOTAL PROTEIN 5.9 G/DL (6.4-8.2); eGFR 84 ML/MIN
[2021-11-05 07:20] LABS: POTASSIUM 2.7 MMOL/L (3.5-5.1)
[2021-11-05] MEDS: pantoprazole 40mg Tablet.DR PO SCH (07:30)
--- NOTE | 2021-11-05 07:52 | NUR ---
Page Sent PAGER ID: [phone] MESSAGE: Pt Ryan Dacosta is Rm 25B critical labs back 12hr Trop 129 and K 2.7. [facility] 5795
[2021-11-05] MEDS: aspirin 81mg, enteric-coated 1 TAB TABLET.DR PO SCH (08:00)
[2021-11-05] MEDS ORDERED: furosemide 10 MG/1 ML 10ml inj IV SCH (08:00)
[2021-11-05] MEDS: apixaban 5mg tablet PO SCH ×2 (08:00→20:21)
[2021-11-05] MEDS: budesonide 0.5mg/2ml UD nebule IH SCH ×2 (08:44→19:59)
[2021-11-05] MEDS ORDERED: magnesium 2GM in 50ml NS 50 ML IV PRN (08:45)
[2021-11-05] MEDS ORDERED: magnesium 4gm in 100ml NS 100 ML IV PRN (08:45)
[2021-11-05] MEDS ORDERED: potassium Cl 20 mEq SR tablet PO PRN (08:45)
[2021-11-05] MEDS ORDERED: magnesium Cl slow-release 64mg tablet PO PRN (08:45)
[2021-11-05] MEDS ORDERED: potassium CL 10mEq/100ml bag 100 ML IV PRN (08:45)
[2021-11-05] MEDS: albuterol 2.5 MG/3 ML nebule NEB PRN ×2 (08:50→19:59)
[2021-11-05 09:08] LABS: MAGNESIUM 1.8 MG/DL (1.5-2.4)
[2021-11-05] MEDS: docusate sod 100mg capsule PO SCH ×2 (09:13→20:22)
[2021-11-05] MEDS: carvedilol 6.25mg tablet PO SCH ×2 (09:14→20:21)
[2021-11-05] MEDS: atorvastatin 10mg tablet PO SCH (09:15)
[2021-11-05] MEDS: lisinopril 10 MG tablet PO SCH (09:17)
[2021-11-05] MEDS: spironolactone 25 MG tablet PO SCH (09:18)
[2021-11-05] MEDS: furosemide 40mg/4ml inj IV SCH ×2 (09:18→20:21)
[2021-11-05] MEDS ORDERED: diltiazem-D5W 125mg/125ml 125 ML IV SCH (13:17)
[2021-11-05] MEDS: potassium Cl 20 mEq SR tablet PO PRN ×2 (13:25→23:49)
[2021-11-05] MEDS: K and/or MAG REPLACEMENT MC SCH (20:00)
[2021-11-06 02:00] VITALS: BP 117/69
[2021-11-06 05:33] LABS: BASOPHILS # (AUTO) 0.1 X10'3 (0-0.2); BASOPHILS % (AUTO) 0.6 % (0-1); EOSINOPHILS % (AUTO) 0.3 % (0-6); HEMATOCRIT 40.3 % (42.0-52.0); HEMOGLOBIN 13.2 g/dl (14.0-17.9); LYMPHOCYTES # (AUTO) 0.5 X10'3 (1.1-4.8); LYMPHOCYTES % (AUTO) 5.3 % (21-51); MEAN CORPUSCULAR HEMOGLOBIN 26.6 PG (27.0-31.0); MEAN CORPUSCULAR HGB CONC 32.7 g/dL (33.0-36.5); MEAN CORPUSCULAR VOLUME 81.4 FL (78-98); MEAN PLATELET VOLUME 9.9 FL (7.4-10.4); MONOCYTES # (AUTO) 0.6 X10'3 (0-0.9); MONOCYTES % (AUTO) 6.7 % (2-12); NEUTROPHILS # (AUTO) 7.9 X10'3 (1.8-7.7); NEUTROPHILS % (AUTO) 87.1 % (42-75); PLATELET COUNT 116 X10'3 (140-440); RED BLOOD COUNT 4.95 X10'6 (4.70-6.10); RED CELL DISTRIBUTION WIDTH 15.5 % (11.5-14.5); WHITE BLOOD COUNT 9.1 X10'3 (4.5-11.0)
[2021-11-06 05:57] LABS: ALANINE AMINOTRANSFERASE 17 U/L (12-78); ALBUMIN 2.9 G/DL (3.4-5.0); ALBUMIN/GLOBULIN RATIO 0.7 (1.1-1.5); ALKALINE PHOSPHATASE 72 IU/L (46-116); ANION GAP 14 (8-16); ASPARTATE AMINO TRANSFERASE 26 U/L (10-37); BILIRUBIN,TOTAL 1.5 MG/DL (0.1-1.0); BLOOD UREA NITROGEN 16 MG/DL (7-18); BUN/CREATININE RATIO 15.4 (5.4-32.0); CALCIUM 8.3 MG/DL (8.5-10.1); CHLORIDE 101 MMOL/L (99-107); CREATININE 1.04 MG/DL (0.60-1.10); GLUCOSE 110 MG/DL (70-104); POTASSIUM 3.5 MMOL/L (3.5-5.1); SODIUM 138 MMOL/L (135-145); TOTAL PROTEIN 6.8 G/DL (6.4-8.2); eGFR 74 ML/MIN
[2021-11-06 05:58] LABS: MAGNESIUM 2.2 MG/DL (1.5-2.4)
[2021-11-06 06:00] VITALS: BP 131/104
[2021-11-06] MEDS: budesonide 0.5mg/2ml UD nebule IH SCH ×2 (07:22→19:45)
[2021-11-06] MEDS: albuterol 2.5 MG/3 ML nebule NEB PRN ×2 (07:24→19:45)
[2021-11-06] MEDS: pantoprazole 40mg Tablet.DR PO SCH (07:30)
[2021-11-06] MEDS: K and/or MAG REPLACEMENT MC SCH ×2 (08:00→20:00)
[2021-11-06] MEDS: apixaban 5mg tablet PO SCH ×2 (08:27→20:46)
[2021-11-06] MEDS: carvedilol 6.25mg tablet PO SCH ×2 (08:27→20:46)
[2021-11-06] MEDS: docusate sod 100mg capsule PO SCH ×2 (08:28→20:46)
[2021-11-06] MEDS: atorvastatin 10mg tablet PO SCH (08:28)
[2021-11-06] MEDS: aspirin 81mg, enteric-coated 1 TAB TABLET.DR PO SCH (08:28)
[2021-11-06] MEDS: lisinopril 10 MG tablet PO SCH (08:28)
[2021-11-06] MEDS: LORazepam 2 mg/ml vial IV SCH ×2 (08:29→17:09)
[2021-11-06] MEDS: furosemide 40mg/4ml inj IV SCH (08:29)
[2021-11-06] MEDS: spironolactone 25 MG tablet PO SCH (08:30)
[2021-11-06 11:00] VITALS: BP 97/58
[2021-11-06] MEDS: DILTIAZEM IV SCH (13:34)
[2021-11-06] MEDS: NORMAL SALINE IV SCH (13:34)
[2021-11-06 15:30] VITALS: BP 95/58
[2021-11-06 18:00] VITALS: BP 102/59
[2021-11-06 22:00] VITALS: BP 108/83
[2021-11-07] MEDS: LORazepam 2 mg/ml vial IV SCH (00:49)
[2021-11-07] MEDS: NORMAL SALINE IV SCH (01:50)
[2021-11-07] MEDS: DILTIAZEM IV SCH (01:50)
[2021-11-07 02:00] VITALS: BP 126/92
[2021-11-07 05:44] LABS: BASOPHILS % (AUTO) 0.7 % (0-1); HEMOGLOBIN 13.2 g/dl (14.0-17.9); MEAN CORPUSCULAR VOLUME 81.6 FL (78-98); MONOCYTES # (AUTO) 0.5 X10'3 (0-0.9); WHITE BLOOD COUNT 6.2 X10'3 (4.5-11.0)
[2021-11-07 05:46] LABS: ALANINE AMINOTRANSFERASE 17 U/L (12-78); ALBUMIN 2.6 G/DL (3.4-5.0); ALBUMIN/GLOBULIN RATIO 0.7 (1.1-1.5); ALKALINE PHOSPHATASE 64 IU/L (46-116); ANION GAP 14 (8-16); ASPARTATE AMINO TRANSFERASE 23 U/L (10-37); BILIRUBIN,TOTAL 1.5 MG/DL (0.1-1.0); BLOOD UREA NITROGEN 18 MG/DL (7-18); BUN/CREATININE RATIO 16.4 (5.4-32.0); CHLORIDE 100 MMOL/L (99-107); EOSINOPHILS % (AUTO) 0.5 % (0-6); GLUCOSE 90 MG/DL (70-104); HEMATOCRIT 40.1 % (42.0-52.0); LYMPHOCYTES # (AUTO) 0.7 X10'3 (1.1-4.8); LYMPHOCYTES % (AUTO) 10.6 % (21-51); MEAN CORPUSCULAR HEMOGLOBIN 26.9 PG (27.0-31.0); MEAN CORPUSCULAR HGB CONC 32.9 g/dL (33.0-36.5); MEAN PLATELET VOLUME 10.2 FL (7.4-10.4); MONOCYTES % (AUTO) 8.1 % (2-12); NEUTROPHILS % (AUTO) 80.1 % (42-75); PLATELET COUNT 102 X10'3 (140-440); RED BLOOD COUNT 4.91 X10'6 (4.70-6.10); RED CELL DISTRIBUTION WIDTH 15.5 % (11.5-14.5); SODIUM 139 MMOL/L (135-145); TOTAL CARBON DIOXIDE 25.2 MMOL/L (24-32); TOTAL PROTEIN 6.4 G/DL (6.4-8.2); eGFR 69 ML/MIN
[2021-11-07 05:49] LABS: POTASSIUM 2.9 MMOL/L (3.5-5.1)
[2021-11-07 06:00] VITALS: BP 99/61
[2021-11-07] MEDS: albuterol 2.5 MG/3 ML nebule NEB PRN ×2 (07:23→20:15)
[2021-11-07] MEDS: budesonide 0.5mg/2ml UD nebule IH SCH ×2 (07:23→20:16)
[2021-11-07] MEDS: furosemide 40mg/4ml inj IV SCH (07:37)
[2021-11-07] MEDS: atorvastatin 10mg tablet PO SCH (07:38)
[2021-11-07] MEDS: docusate sod 100mg capsule PO SCH ×2 (07:38→20:25)
[2021-11-07] MEDS: pantoprazole 40mg Tablet.DR PO SCH (07:38)
[2021-11-07] MEDS: aspirin 81mg, enteric-coated 1 TAB TABLET.DR PO SCH (07:38)
[2021-11-07] MEDS: carvedilol 6.25mg tablet PO SCH ×2 (07:39→20:00)
[2021-11-07] MEDS: potassium Cl 20 mEq SR tablet PO PRN ×3 (07:39→20:26)
[2021-11-07] MEDS: apixaban 5mg tablet PO SCH ×2 (07:39→20:25)
[2021-11-07] MEDS: lisinopril 10 MG tablet PO SCH (07:40)
[2021-11-07] MEDS: spironolactone 25 MG tablet PO SCH (07:42)
[2021-11-07] MEDS: K and/or MAG REPLACEMENT MC SCH ×2 (07:51→20:26)
[2021-11-07 11:00] VITALS: BP 88/57
[2021-11-07 15:00] VITALS: BP 114/65
[2021-11-07] MEDS ORDERED: LORazepam 2 mg/ml vial IV PRN (15:25)
[2021-11-07] MEDS ORDERED: digoxin 250mcg/ml 2ml ampule IV ONE (15:55)
[2021-11-07 18:00] VITALS: BP 119/74
[2021-11-07 22:00] VITALS: BP 128/79
[2021-11-08 02:00] VITALS: BP_SYST 118; BP_SYST 120; BP_DIAS 70; BP_DIAS 79
[2021-11-08] MEDS ORDERED: digoxin 250mcg/ml 2ml ampule IV SCH (02:00)
--- NOTE | 2021-11-08 02:48 | NUR ---
PT DOES NOT FOLLOW COMMAND. IV BEEN INSERT MORE THAN 6 TIMES AND TAKE THEM OFF . PATRICIA DRIP ON HOLD BECAUSE HE REFUSED.
[2021-11-08 05:51] LABS: BASOPHILS % (AUTO) 0.1 % (0-1); EOSINOPHILS % (AUTO) 0 % (0-6); HEMATOCRIT 42.2 % (42.0-52.0); HEMOGLOBIN 13.8 g/dl (14.0-17.9); LYMPHOCYTES # (AUTO) 0.7 X10'3 (1.1-4.8); LYMPHOCYTES % (AUTO) 4.9 % (21-51); MEAN CORPUSCULAR HEMOGLOBIN 26.4 PG (27.0-31.0); MEAN CORPUSCULAR HGB CONC 32.6 g/dL (33.0-36.5); MEAN PLATELET VOLUME 10.9 FL (7.4-10.4); MONOCYTES # (AUTO) 1.1 X10'3 (0-0.9); MONOCYTES % (AUTO) 7.6 % (2-12); NEUTROPHILS # (AUTO) 12.3 X10'3 (1.8-7.7); NEUTROPHILS % (AUTO) 87.4 % (42-75); PLATELET COUNT 90 X10'3 (140-440); RED BLOOD COUNT 5.21 X10'6 (4.70-6.10); RED CELL DISTRIBUTION WIDTH 15.2 % (11.5-14.5); WHITE BLOOD COUNT 14.1 X10'3 (4.5-11.0)
[2021-11-08 06:00] VITALS: BP 131/69
[2021-11-08 06:55] LABS: ALANINE AMINOTRANSFERASE 13 U/L (12-78); ALBUMIN 2.6 G/DL (3.4-5.0); ALBUMIN/GLOBULIN RATIO 0.6 (1.1-1.5); ALKALINE PHOSPHATASE 66 IU/L (46-116); ANION GAP 12 (8-16); ASPARTATE AMINO TRANSFERASE 31 U/L (10-37); BILIRUBIN,TOTAL 1.6 MG/DL (0.1-1.0); BLOOD UREA NITROGEN 15 MG/DL (7-18); BUN/CREATININE RATIO 16.1 (5.4-32.0); CALCIUM 8.3 MG/DL (8.5-10.1); CHLORIDE 103 MMOL/L (99-107); CREATININE 0.93 MG/DL (0.60-1.10); GLUCOSE 104 MG/DL (70-104); POTASSIUM 4.2 MMOL/L (3.5-5.1); SODIUM 134 MMOL/L (135-145); TOTAL CARBON DIOXIDE 19.5 MMOL/L (24-32); TOTAL PROTEIN 6.8 G/DL (6.4-8.2); eGFR 84 ML/MIN
[2021-11-08] MEDS: budesonide 0.5mg/2ml UD nebule IH SCH ×2 (07:02→20:32)
[2021-11-08] MEDS: albuterol 2.5 MG/3 ML nebule NEB PRN ×2 (07:02→20:32)
[2021-11-08] MEDS: apixaban 5mg tablet PO SCH ×2 (07:31→20:00)
[2021-11-08] MEDS: pantoprazole 40mg Tablet.DR PO SCH (07:31)
[2021-11-08] MEDS: furosemide 40mg/4ml inj IV SCH ×2 (07:31→20:00)
[2021-11-08] MEDS: aspirin 81mg, enteric-coated 1 TAB TABLET.DR PO SCH (07:32)
[2021-11-08] MEDS: carvedilol 6.25mg tablet PO SCH ×2 (07:32→20:00)
[2021-11-08] MEDS: atorvastatin 10mg tablet PO SCH (07:32)
[2021-11-08] MEDS: docusate sod 100mg capsule PO SCH ×2 (07:32→20:00)
[2021-11-08] MEDS: K and/or MAG REPLACEMENT MC SCH ×2 (08:00→20:00)
--- NOTE | 2021-11-08 08:28 | NUR ---
Initial: Pt admitted w/ acute on chronic CHF, cardiomyopathy, encephalopathy and NSTEMI per EMR. Currently on Heart Healthy diet w/ 1.5L fluid restriction, avg intake 50% of meals partially meeting needs. Pt could benefit from Ensure Enlive BID to assist w/ meeting nutritional needs. Pt noted to be mostly A&O x2 and non cooperative at times. [facility] 11/06 receiving routine colace. Will continue to monitor Recs: 1. Continue Heart Healthy diet w/ 1.5L fluid restriction per MD 2. Ensure Enlive BIDBD; pending MD verification 3. Consider obtaining lipid panel if MD agreeable 4. Bowel care per rx 5. Weekly wts Addendum: 11/08/21 at [address] Amended: Links added.
[2021-11-08] MEDS ORDERED: magnesium Cl slow-release 64mg tablet PO PRN (16:10)
[2021-11-08] MEDS ORDERED: potassium CL 10mEq/100ml bag 100 ML IV PRN (16:10)
[2021-11-08] MEDS ORDERED: potassium Cl 20 mEq SR tablet PO PRN ×2 (16:10)
[2021-11-08] MEDS ORDERED: magnesium 4gm in 100ml NS 100 ML IV PRN (16:10)
[2021-11-08] MEDS ORDERED: cefTRIAXone 1g/NS 100ml IVPB 100 ML IV ONE (16:15)
[2021-11-08] MEDS ORDERED: lactose-reduced food (Ensure Enlive) - 237ml bottle PO SCH (17:30)
[2021-11-08 18:00] VITALS: BP 99/63
[2021-11-08 19:56] VITALS: BP 95/59
[2021-11-08] MEDS ORDERED: K and/or MAG REPLACEMENT MC SCH (20:00)
[2021-11-08 22:00] VITALS: BP 98/65
[2021-11-09 02:00] VITALS: BP 100/64
[2021-11-09 05:57] LABS: BASOPHILS % (AUTO) 0.3 % (0-1); EOSINOPHILS % (AUTO) 0.2 % (0-6); HEMATOCRIT 41.7 % (42.0-52.0); HEMOGLOBIN 13.5 g/dl (14.0-17.9); LYMPHOCYTES # (AUTO) 1.3 X10'3 (1.1-4.8); LYMPHOCYTES % (AUTO) 9.8 % (21-51); MEAN CORPUSCULAR HEMOGLOBIN 26.4 PG (27.0-31.0); MEAN CORPUSCULAR HGB CONC 32.5 g/dL (33.0-36.5); MEAN CORPUSCULAR VOLUME 81.2 FL (78-98); MEAN PLATELET VOLUME 11.3 FL (7.4-10.4); MONOCYTES # (AUTO) 0.8 X10'3 (0-0.9); MONOCYTES % (AUTO) 6.2 % (2-12); NEUTROPHILS # (AUTO) 11.3 X10'3 (1.8-7.7); NEUTROPHILS % (AUTO) 83.5 % (42-75); PLATELET COUNT 66 X10'3 (140-440); RED BLOOD COUNT 5.13 X10'6 (4.70-6.10); RED CELL DISTRIBUTION WIDTH 15.7 % (11.5-14.5); WHITE BLOOD COUNT 13.6 X10'3 (4.5-11.0)
[2021-11-09 06:00] VITALS: BP 102/65
[2021-11-09 06:15] LABS: ALANINE AMINOTRANSFERASE 14 U/L (12-78); ALBUMIN 2.5 G/DL (3.4-5.0); ALBUMIN/GLOBULIN RATIO 0.6 (1.1-1.5); ALKALINE PHOSPHATASE 65 IU/L (46-116); ANION GAP 16 (8-16); ASPARTATE AMINO TRANSFERASE 21 U/L (10-37); BILIRUBIN,TOTAL 1.3 MG/DL (0.1-1.0); BLOOD UREA NITROGEN 25 MG/DL (7-18); BUN/CREATININE RATIO 23.1 (5.4-32.0); CALCIUM 8.7 MG/DL (8.5-10.1); CHLORIDE 105 MMOL/L (99-107); CREATININE 1.08 MG/DL (0.60-1.10); GLUCOSE 97 MG/DL (70-104); MAGNESIUM 2.3 MG/DL (1.5-2.4); POTASSIUM 3.9 MMOL/L (3.5-5.1); SODIUM 142 MMOL/L (135-145); TOTAL CARBON DIOXIDE 21.1 MMOL/L (24-32); TOTAL PROTEIN 6.8 G/DL (6.4-8.2); eGFR 71 ML/MIN
[2021-11-09] MEDS ORDERED: digoxin 125mcg (0.125mg) tablet PO SCH (08:00)
[2021-11-09] MEDS ORDERED: digoxin 250mcg/ml 2ml ampule IV SCH (08:00)
[2021-11-09] MEDS: apixaban 5mg tablet PO SCH (08:00)
[2021-11-09] MEDS ORDERED: cefTRIAXone 1g/NS 100ml IVPB 100 ML IV SCH (08:00)
[2021-11-09] MEDS: carvedilol 6.25mg tablet PO SCH (08:00)
[2021-11-09] MEDS: furosemide 40mg/4ml inj IV SCH (08:00)
[2021-11-09] MEDS: docusate sod 100mg capsule PO SCH (08:00)
[2021-11-09] MEDS: pantoprazole 40mg Tablet.DR PO SCH (08:01)
[2021-11-09] MEDS: aspirin 81mg, enteric-coated 1 TAB TABLET.DR PO SCH (08:01)
[2021-11-09] MEDS: atorvastatin 10mg tablet PO SCH (08:01)
[2021-11-09] MEDS: budesonide 0.5mg/2ml UD nebule IH SCH (09:26)
[2021-11-09] MEDS: albuterol 2.5 MG/3 ML nebule NEB PRN (09:26)
[2021-11-09] MEDS ORDERED: lisinopril 2.5mg tablet PO ONE (09:55)
[2021-11-09] MEDS ORDERED: CEFP200T13 PO (13:01)
[2021-11-09] MEDS ORDERED: LAN0.125T PO (13:01)
[2021-11-09] MEDS ORDERED: FURO40TA4 PO (13:01)
[2021-11-09] MEDS ORDERED: LISI2.5T14 PO (13:01)
[2021-11-09] MEDS ORDERED: POTA-207 PO (13:01)
[2021-11-10] MEDS ORDERED: lisinopril 2.5mg tablet PO SCH (08:00)
== END 2021-11-09 15:35 | disposition home or self-care (01) | DRG 812 ==
LOC: ER 15:11 → ED HOLD 19:54 → PCU 3S 21:05
PROVIDERS: ADMIT Family Medicine; ATTEND Family Medicine
DX: T43.621A Poisoning by amphetamines, accidental (unintentional), initial encounter (principal); J69.0 Pneumonitis due to inhalation of food and vomit; G92.8 Other toxic encephalopathy; I50.23 Acute on chronic systolic (congestive) heart failure; I21.A1 Myocardial infarction type 2; K56.609 Unspecified intestinal obstruction, unspecified as to partial versus complete obstruction; I42.7 Cardiomyopathy due to drug and external agent; I95.9 Hypotension, unspecified; I11.0 Hypertensive heart disease with heart failure; F12.129 Cannabis abuse with intoxication, unspecified; F31.9 Bipolar disorder, unspecified; R00.0 Tachycardia, unspecified; F15.129 Other stimulant abuse with intoxication, unspecified; F41.9 Anxiety disorder, unspecified; I48.20 Chronic atrial fibrillation, unspecified; R26.81 Unsteadiness on feet; I48.92 Unspecified atrial flutter; J44.9 Chronic obstructive pulmonary disease, unspecified; Z56.0 Unemployment, unspecified; Z79.01 Long term (current) use of anticoagulants; Z83.3 Family history of diabetes mellitus; Z88.2 Allergy status to sulfonamides; Z71.51 Drug abuse counseling and surveillance of drug abuser; Z79.899 Other long term (current) drug therapy; Y92.89 Other specified places as the place of occurrence of the external cause
CPT/HCPCS: 36415; 36600; 71045; 71046; 80053; 80162; 80305; 81001; 82550; 82803; 83605; 83735; 83880; 84100; 84145; 84443; 84484; 85018; 85025; 85610; 85730; 87040; 87081; 92508; 92616; 93005; 93308; 94640; 94760; 96374; 96375; 99285; G0378; J0153; J0696; J1160; J1250; J1940; J2060; J3490; J7030